=== PATIENT | female | born 1995 | race Caucasian/White ===

== ENCOUNTER 2016-12-11 16:21 | Emergency (ER) | payer OTHER ==
[~2016-12-11] VITALS: Wt 72.0 kg
--- NOTE | 2016-12-11 16:53 | ERD ---
ER Documentation Chief Complaint Date/Time DATE: 12/11/16 TIME: 16:52 Chief Complaint UPPER LIP SWELLING X 4 DAYS HPI 21-year-old female who presents to the emergency room for left upper lip swelling for 4 days. Stated that her father had a "bee sting 2 days ago" and she had a bilateral palm itchiness for a few hours, and not sure if she was bitten by a bee too. Stated that she is able to tolerate liquids by mouth without discomfort/difficulty. Denies bilateral hand itching at this time. Denies headache, loss of consciousness, dizziness, blurry vision, eye itchiness , changes in vision, photophobia, facial pain, ear pain, throat pain, throat itchiness, throat tightness, difficulty swallowing, neck pain, shoulder pain, chest pain, cough, difficulty breathing, hemoptysis, abdominal pain, back pain, loss of appetite, nausea, vomiting, hematochezia, diarrhea, constipation, urinary symptoms, , the possibility of being , bladder and bowel incontinences, extremity weakness, extremity tenderness, numbness or tingling sensation, difficulty walking, recent travel, recent exposure to illness, itchiness, recent antibiotic use in the last 3 months, fever, chills. Allergy: No known drug allergies. PMH: Denies. Family medical history: Denies. AO LMP:11/23/2016 Medications: NyQuil. Surgery: Right knee surgery 5 months ago. Primary Social History: Works as a cashier ticket selling. Denies smoking, use of alcohol, use of illegal drugs. ROS All systems reviewed and are negative except as per history of present illness. Medications Home Meds Active Scripts Diphenhydramine Hcl (Benadryl) 25 Mg Cap, 25 MG PO q 8 hours Y for ITCHING, #20 CAP Prov:TOMER MOONAR F 12/11/16 Prednisone* (Prednisone*) 20 Mg Tab, 40 MG PO DAILY for 4 Days, TAB Prov:TONG MOON F 12/11/16 PMhx/Soc Medical and Surgical Hx: pt denies Medical Hx, pt denies Surgical Hx Physical Exam Vitals Vital Signs Date Time Temp Pulse Resp B/P Pulse Ox O2 Delivery O2 Flow Rate FiO2 12/11/16 16:29 98.0 97 18 174/84 99 Physical Exam CONSTITUTIONAL: Well-appearing; well-nourished; in no apparent distress. HEAD: Normocephalic; atraumatic. EYES: Conjunctiva clear, sclera non-icteric, EOM intact. PERRL Ears: Hearing intact. EACs clear, TMs non-bulging, non-inflamed, translucent & mobile, ossicles normal appearance, No obstructions, no erythema, no discharges Nose: No obstructions. No polyps. No external lesions. Mucosa non-inflamed. No external lesions, septum and turbinates normal. No rhinorrhea. No discharges. Frontal sinus is non-tender to palpation. Maxillary sinus is non-tender to palpation. MOUTH: Left upper lip swelling (not erythematous, nontender, no rashes, no lesions). Moist mucous membranes, no lesion, no obstructions, no vesicles, no thrush, patent airway. Throat: Uvula in midline. Right tonsil is +1 with no erythema, no exudate. Left tonsil is +1 with no erythema, no exudate. Tolerating secretions well. Good gag reflex. Patent airway. Neck: Supple, without lesions, bruits, or adenopathy. No mass. Thyroid non- enlarged and non-tender to palpation. CHEST: Symmetrical chest. Respirations even and not labored. No retractions noted. CARDIOVASCULAR: Normal S1, S2. RRR. No murmurs, gallops. RESPIRATORY: Normal chest excursion with respiration; breath sounds clear and equal bilaterally; no wheezes, rhonchi, or rales. Breathing even and unlabored. Speaking in clear, full, and complete sentences w/ ease. ABDOMEN: Normal bowel sounds normal. Soft, round, non-distended, non-guarding, no tenderness, no rebound, no organomegaly, no masses, no pulsating abdominal mass. No hernia. No peritoneal signs. : No CVA tenderness. BACK: Symmetrical shoulder. Spine is midline without deformity, tenderness. No evidence of trauma or deformity. PELVIS: Stable pelvis. No evidence of trauma or deformity. MUSCULOSKELETAL: Normal gait and station. No misalignment, asymmetry, crepitation, defects, tenderness, masses, effusions, decreased range of motion, instability, atrophy or abnormal strength or tone in the head, neck, spine, ribs , pelvis or extremities. No calf tenderness. NEUROVASCULAR: Distal pulses are present. Pedal pulse are present, equal, and normal. Capillary refills are < 2 seconds. NEUROLOGIC: Alert and oriented x4. Speaks full and clear sentences. Cranial Nerves II-XII normal. Sensation to pain, touch, and proprioception normal. Grossly unremarkable. No neurologic deficits. Romberg test is negative. PSYCHOLOGICAL: The patients mood and manner are appropriate. No hallucinations , delusions. Not SI. Not HI. Has the capacity to decide for self SKIN: Normal for age and ethnicity; warm; dry; good turgor; no apparent lesions or exudates. No rashes, hives, discoloration. Intact. Results 24 hrs Current Medications Medications (Trade) Dose Ordered Sig/Talia Route PRN Reason Start Time Stop Time Status Last Admin Dose Admin Prednisone (Prednisone) 60 mg ONCE ONCE PO 12/11/16 17:00 12/11/16 17:01 DC 12/11/16 17:11 Diphenhydramine HCl (Benadryl) 25 mg ONCE ONCE PO 12/11/16 17:00 12/11/16 17:01 DC 12/11/16 17:12 Procedures/MDM Examination: Please see physical examination. Disease process, medical treatment was explained to the patient and family member. They verbalized understanding and agreed with medical treatment, and follow-up care. Disease process, medical treatment was explained to the patient and family member. They verbalized understanding and agreed with the diagnostic tests, medical treatment, and follow-up care. Treatment: Prednisone 60 mg by mouth 1. Benadryl 25 mg by mouth 1. Re-evaluation: Denies itchiness, throat tightness, throat itchiness, chest tightness, difficulty breathing. Patient is alert oriented 4. Speaks full and clear sentences. Tolerating secretions by mouth. No difficulty swallowing. No airway obstruction. Patent airway. Respirations even and unlabored. Lung sounds are clear to auscultation. No nausea and vomiting. Skin has no rashes, lesions, hives. Consultation: None. Differential diagnosis: Anaphylaxis versus angioedema versus allergic reaction versus lip swelling Medical decision makin-year-old female who presents to the emergency room for left upper lip swelling for 4 days. Stated that her father had a "bee sting 2 days ago" and she had a bilateral palm itchiness for a few hours, and not sure if she was bitten by a bee too. Stated that she is able to tolerate liquids by mouth without discomfort/difficulty. Denies bilateral hand itching at this time. Patient's complaint, patient's history about her complaint, patient's presentation, my physical findings, my re-evaluation are consistent with my final diagnosis of lip swelling with unknown etiology. Medications prescribed are the following: Prednisone 40 mg by mouth daily for 4 days. Benadryl 25 mg by mouth every 8 hours as needed for itchiness. Patient and family member are made aware of the side effects and adverse reactions of the medications prescribed. Instructed on when to seek emergent and medical attention in case allergic/anaphylactic reactions or severe side effects and or adverse reactions to medications. Patient and family member verbalized understanding. Patient instructed Instructed to follow-up with his PCP in 24-48 hours. Stated that she will follow -up with her PCP in the next 24-48 hours. Instructed to Call 911 for chest pain, shortness of breath. Advised to come back here in ED as soon as possible for severity of symptoms which includes but not limited to: any new symptoms; shortness of breath/difficulty of breathing; cardiovascular changes; severe gastrointestinal symptoms; signs and symptoms of bleeding and or infection; signs of compartment syndrome/neurovascular changes; neurological changes/deficits. Patient and family member verbalized understanding. Upon discharge, patient is alert and oriented x 4, speaks full and clear sentences, denies pain, has no neurological deficits, has no neurovascular deficits, difficulty of breathing. Breathing even and unlabored. Lung sounds are clear to auscultation. Not in distress. Appears comfortable. Ambulatory with steady gait. Appears satisfied with care provided here in ED. Departure Diagnosis: Primary Impression: Swelling Condition: Good Additional Instructions: Instructed to follow-up with his PCP in 24-48 hours. Stated that she will follow -up with her PCP in the next 24-48 hours. Instructed to Call 911 for chest pain, shortness of breath. Advised to come back here in ED as soon as possible for severity of symptoms which includes but not limited to: any new symptoms; shortness of breath/difficulty of breathing; cardiovascular changes; severe gastrointestinal symptoms; signs and symptoms of bleeding and or infection; signs of compartment syndrome/neurovascular changes; neurological changes/deficits. Patient and family member verbalized understanding. TONG MOON Dec 11, 2016 16:53 TONG MOON Dec 11, 2016 16:53
[2016-12-11] MEDS ORDERED: predniSONE 20 MG TAB PO ONE (17:00)
[2016-12-11] MEDS ORDERED: DIPHENHYDRAMINE 25 MG CAP PO ONE (17:00)
[2016-12-11] MEDS ORDERED: PRED20TA PO (17:01)
[2016-12-11] MEDS ORDERED: DIPH25CA6 PO (17:02)
== END 2016-12-11 17:31 | disposition home or self-care (01) ==
LOC: FTE 16:21
DX: R60.0 Localized edema (principal)
CPT/HCPCS: J7512; Z7502; Z7610; 99283